=== PATIENT | male | born 1975 | race Caucasian/White ===

== ENCOUNTER 2016-05-25 15:26 | Emergency (ER) | payer OTHER ==
[2016-05-25] MEDS ORDERED: oxyCODONE 5 MG TABLET PO STA (15:39)
[2016-05-25] MEDS ORDERED: oxyCODONE 5 MG TABLET ONE (15:40)
== END 2016-05-25 16:50 | disposition home or self-care (01) ==
DX: R07.9 Chest pain, unspecified (principal); M79.605 Pain in left leg; R03.0 Elevated blood-pressure reading, without diagnosis of hypertension; I48.0 Paroxysmal atrial fibrillation; G43.909 Migraine, unspecified, not intractable, without status migrainosus; Z86.718 Personal history of other venous thrombosis and embolism; Z79.82 Long term (current) use of aspirin; Z79.899 Other long term (current) drug therapy
CPT/HCPCS: 36415; 80053; 83690; 85025; 85379; 93005; 93010; 93971; 99283; 99284; A9270

== ENCOUNTER 2016-06-24 14:19 | Outpatient (CLI) | payer OTHER | END 2016-06-24 14:20 | disposition critical access hospital (66) | DX: R07.89 Other chest pain (principal); R68.84 Jaw pain; M79.602 Pain in left arm; R06.02 Shortness of breath | CPT/HCPCS: A0425; A0427 ==

== ENCOUNTER 2016-07-02 16:13 | Outpatient (CLI) | payer OTHER | END 2016-07-02 16:14 | disposition home or self-care (01) | DX: M47.812 Spondylosis without myelopathy or radiculopathy, cervical region (principal); M50.222 Other cervical disc displacement at C5-C6 level; M47.813 Spondylosis without myelopathy or radiculopathy, cervicothoracic region ==

== ENCOUNTER 2016-11-06 14:58 | Outpatient (CLI) | payer OTHER | END 2016-11-06 14:59 | disposition critical access hospital (66) | LOC: EMS 14:58 | PROVIDERS: ATTEND Surgery | DX: R25.9 Unspecified abnormal involuntary movements (principal); R51 Headache | CPT/HCPCS: A0425; A0427 ==

== ENCOUNTER 2016-11-06 15:15 | Emergency (ER) | payer OTHER ==
[2016-11-06] MEDS ORDERED: SODIUM CHLORIDE 0.9% 1,000 ML IV ONE ×2 (15:21→15:32)
[2016-11-06] MEDS ORDERED: PROCHLORPERAZINE 10 MG/2 ML VIAL IVP STA (15:21)
[2016-11-06] MEDS ORDERED: DEXAMETHASONE 10 MG/ML VIAL IVP STA (15:21)
[2016-11-06] MEDS ORDERED: diphenhydrAMINE INJ 50 MG/ML VIAL IVP STA (15:21)
[2016-11-06] MEDS ORDERED: KETOROLAC 60 MG/2 ML VIAL IVP STA (15:21)
[2016-11-06] MEDS ORDERED: KETOROLAC 30 MG/ML VIAL ONE (15:31)
[2016-11-06] MEDS ORDERED: diphenhydrAMINE INJ 50 MG/ML VIAL ONE (15:31)
[2016-11-06] MEDS ORDERED: DEXAMETHASONE 10 MG/ML VIAL ONE (15:32)
[2016-11-06] MEDS ORDERED: PROCHLORPERAZINE 10 MG/2 ML VIAL ONE (15:32)
[2016-11-06 15:33] LABS: BASOPHILS # (AUTO) 0.1 10^3/uL (0.0-0.1); BASOPHILS % (AUTO) 1.3 %; EOSINOPHILS # (AUTO) 0.2 10^3/uL (0.0-0.7); EOSINOPHILS % (AUTO) 2.3 %; HCT - HEMATOCRIT 48.9 % (42.0-52.0); HGB - HEMOGLOBIN 16.5 g/dL (14.0-18.0); LYMPHOCYTES # (AUTO) 2.4 10^3/uL (1.5-3.5); LYMPHOCYTES % (AUTO) 33.5 %; MEAN CORPUSCULAR HEMOGLOBIN 30.6 pg (27.0-31.0); MEAN CORPUSCULAR HGB CONC 33.8 g/dL (32.0-36.0); MEAN CORPUSCULAR VOLUME 90.4 fL (80.0-94.0); MEAN PLATELET VOLUME 7.5 fL (7.4-11.4); MONOCYTES # (AUTO) 0.7 10^3/uL (0.0-1.0); MONOCYTES % (AUTO) 9.3 %; NEUTROPHILS # (AUTO) 3.9 10^3/uL (1.5-6.6); NEUTROPHILS % (AUTO) 53.6 %; NUCLEATED RED BLOOD CELLS AUTO 0.1 /100WBC; RED BLOOD COUNT 5.41 10^6/uL (4.70-6.10); RED CELL DISTRIBUTION WIDTH 12.8 % (12.0-15.0); UNCORRECTED WHITE BLOOD COUNT 7.2 x10^3/uL; WHITE BLOOD COUNT 7.2 x10^3/uL (4.8-10.8)
[2016-11-06 15:37] LABS: BILIRUBIN,URINE NEGATIVE (NEGATIVE); PH,URINE 6.5 PH (5.0-7.5)
[2016-11-06 15:38] LABS: UA CHARGE (STRIP ONLY) YES; UR CULTURE IF IND NOT INDICATED
[2016-11-06] MEDS ORDERED: HYDROmorphone 1 MG/ML SYRINGE IVP STA (15:42)
--- NOTE | 2016-11-06 15:42 | ED Physician Documentation ---
History of Present Illness - Stated complaint Stated Complaint: REACTION - Chief complaint Chief Complaint: General - History obtained from History obtained from: Patient, EMS - History of Present Illness Timing: Today - Additonal information Additional information: 40-year-old male with a history of migraines who over the past 6 months has developed periodic body shaking associated with his headaches. These body shaking episodes usually only last briefly and are self resolving. He states that today he was at work when he developed a headache and he developed some of this body shaking which is consisting of flexion of the neck and torso and lower back in a rhythmic fashion with the legs pulled up and flexing and relaxing as well. He states that he was stubborn and got in his car and drove home and his called 911. He was treated in route to the hospital with Benadryl 25 mg intravenous. He arrived to the emergency department with flexion and extension of the torso head neck and lower extremities in a rhythmic fashion during which the patient was able to answer questions and he was able to halt this for brief periods of time. He relates that he sees a headache specialist a neurologist in [place] and this neurologist has diagnosed him with atypical migraines. Review of Systems Constitutional: denies: Fever, Chills, Myalgias Eyes: denies: Decreased vision Ears: denies: Ear pain Nose: denies: Rhinorrhea / runny nose, Congestion Throat: denies: Oral lesions / sores, Sore throat Cardiac: denies: Chest pain / pressure, Palpitations Respiratory: denies: Dyspnea, Cough GI: reports: Nausea, Vomiting. denies: Abdominal Pain : denies: Dysuria, Frequency Skin: denies: Rash Musculoskeletal: reports: Neck pain. denies: Back pain, Extremity pain, Joint pain Neurologic: reports: Headache. denies: Generalized weakness, Focal weakness, Numbness, Head injury, LOC PD PAST MEDICAL HISTORY - Past Medical History Cardiovascular: Atrial fibrillation Neuro: Headache/migraine - Past Surgical History Past Surgical History: No General: Appendectomy HEENT: Tonsil/Adenoidectomy - Present Medications Home Medications: Ambulatory Orders Medication Instructions Recorded Confirmed Duloxetine HCl 1 cap PO BID 01/27/16 11/06/16 Gabapentin 3 cap PO BID 01/27/16 11/06/16 Prazosin HCl 20 mg PO DAILY 01/27/16 11/06/16 lamoTRIgine [LaMICtal] 100 mg PO BID 01/27/16 11/06/16 Methocarbamol 500 mg PO TID 05/25/16 11/06/16 Butalb/Acetaminophen/Caffeine 1 each PO PRN PRN 06/24/16 11/06/16 [Fioricet 50-300-40 mg Capsule] Aspirin 81 mg ORAL DAILY 11/06/16 11/06/16 Ergocalciferol [Vitamin D2] 50,000 units ORAL DAILY 11/06/16 11/06/16 HYDROcod/ACETAM 5/325 [[place] 5/325] 1 - 2 ea PO Q6H PRN #15 tablet 11/06/16 Metoprolol Succinate 25 mg ORAL DAILY 11/06/16 11/06/16 - Allergies Allergies/Adverse Reactions: Allergies Allergy/AdvReac Type Severity Reaction Status Date / Time anthrax vaccine Allergy Edema Verified 06/24/16 14:57 [Anthrax Vaccine] levofloxacin [From Levaquin] Allergy Unknown Verified 06/24/16 14:57 - Social History Does the pt smoke?: Yes Smoking Status: Former smoker Does the pt drink ETOH?: Yes Does the pt have substance abuse?: No - Immunizations Immunizations are current?: Yes PD ED PE NORMAL - Vitals Vital signs reviewed: Yes (tachy and hypertensive) - General General: Well developed/nourished, Other (The patient is rythmically flexing his neck and torso as well as his LE. He has been doing this for about 2 hours now and he is diaphoretic and he is grunting in pain and he notes the pain is in the neck and head. ) - HEENT HEENT: Atraumatic, PERRL, EOMI, Ears normal, Moist mucous membranes, Pharynx benign - Neck Neck: No bony TTP, Other (There is dense spasm to the cervical paraspinous muscles. ) - Cardiac Cardiac: RRR, No murmur - Respiratory Respiratory: No respiratory distress, Clear bilaterally - Abdomen Abdomen: Soft, Non tender - Back Back: No CVA TTP, No spinal TTP - Derm Derm: Normal color, Warm and dry, No rash - Extremities Extremities: No deformity, No edema - Neuro Neuro: Alert and oriented X 3, psychiatric aide instructor 2-12 intact, No motor deficit, No sensory deficit, Normal speech Results - Vitals Vitals: Vital Signs - 24 hr 11/06/16 11/06/16 11/06/16 15:20 16:14 17:31 Temperature 36.3 C L Heart Rate 104 H 81 68 Respiratory 22 16 Rate Blood Pressure 141/104 H 125/82 H 127/78 O2 Saturation 98 98 98 11/06/16 18:33 Temperature 36.9 C Heart Rate 73 Respiratory 18 Rate Blood Pressure 128/80 O2 Saturation 96 Oxygen O2 Source Room air - Labs Labs: Laboratory Tests 11/06/16 11/06/16 11/06/16 15:25 15:25 15:25 WBC 7.2 RBC 5.41 Hgb 16.5 Hct 48.9 MCV 90.4 MCH 30.6 MCHC 33.8 RDW 12.8 Plt Count 188 MPV 7.5 Neut # 3.9 Lymph # 2.4 [place] # 0.7 Eos # 0.2 Baso # 0.1 Absolute Nucleated RBC 0.00 Nucleated RBCs 0.1 Sodium 137 Potassium 3.9 Chloride 103 Carbon Dioxide 24 Anion Gap 10.0 BUN 9 Creatinine 0.9 Estimated GFR (MDRD) 94 Glucose 106 H Calcium 9.3 Total Bilirubin 0.4 AST 24 ALT 30 Alkaline Phosphatase 65 Total Creatine Kinase 82 CK-MB (CK-2) 1.4 Troponin I < 0.04 Total Protein 7.4 Albumin 4.7 Globulin 2.7 Albumin/Globulin Ratio 1.7 Lipase 35 Urine Color Urine Clarity Urine pH Ur Specific [place] Urine Protein Urine Glucose (UA) Urine Ketones Urine Occult Blood Urine Nitrite Urine Bilirubin Urine Urobilinogen Ur Leukocyte Esterase Ur Microscopic Review Urine Culture Comments Urine Opiates Screen Ur Oxycodone Screen Urine Methadone Screen Ur Propoxyphene Screen Ur Barbiturates Screen Ur Tricyclics Screen Ur Phencyclidine Scrn Ur Amphetamine Screen U Methamphetamines Scrn U Benzodiazepines Scrn Urine Cocaine Screen U Cannabinoids Screen 11/06/16 15:25 WBC RBC Hgb Hct MCV MCH MCHC RDW Plt Count MPV Neut # Lymph # [place] # Eos # Baso # Absolute Nucleated RBC Nucleated RBCs Sodium Potassium Chloride Carbon Dioxide Anion Gap BUN Creatinine Estimated GFR (MDRD) Glucose Calcium Total Bilirubin AST ALT Alkaline Phosphatase Total Creatine Kinase CK-MB (CK-2) Troponin I Total Protein Albumin Globulin Albumin/Globulin Ratio Lipase Urine Color YELLOW Urine Clarity CLEAR Urine pH 6.5 Ur Specific [place] <=1.005 Urine Protein NEGATIVE Urine Glucose (UA) NEGATIVE Urine Ketones NEGATIVE Urine Occult Blood NEGATIVE Urine Nitrite NEGATIVE Urine Bilirubin NEGATIVE Urine Urobilinogen 0.2 (NORMAL) Ur Leukocyte Esterase NEGATIVE Ur Microscopic Review NOT INDICATED Urine Culture Comments NOT INDICATED Urine Opiates Screen NEGATIVE Ur Oxycodone Screen NEGATIVE Urine Methadone Screen NEGATIVE Ur Propoxyphene Screen NEGATIVE Ur Barbiturates Screen POSITIVE H Ur Tricyclics Screen NEGATIVE Ur Phencyclidine Scrn NEGATIVE Ur Amphetamine Screen NEGATIVE U Methamphetamines Scrn NEGATIVE U Benzodiazepines Scrn NEGATIVE Urine Cocaine Screen NEGATIVE U Cannabinoids Screen NEGATIVE PD MEDICAL DECISION MAKING - ED course Complexity details: reviewed old records, reviewed results, re-evaluated patient , considered differential, d/w patient ED course: 40-year-old male with a headache and atypical movement is treated for migraine on arrival to the emergency department with Compazine Benadryl Toradol Decadron and saline he has some improvement with this but requires a dose of Dilaudid for control of the headache pain and following the administration of this he has cessation of his body jerking. He does not have elevation of his CK and his headache is resolved. The patient had a dramatic presentation and his behavior appeared to me to be a hysterical pain behavior with hyperventilation and rapid rocking. He does have a history of PTSD and he is being treated for this. At the conclusion of treatment the patient is markedly improved he is animated and able to provide history with his family and boss present. He has an appointment next with pain management. I wonder if this patient is experiencing PTSD with his headaches. Departure - Departure Disposition: 01 Home, Self Care Clinical Impression: Migraine Qualifiers: Migraine type: unspecified Status migrainosus presence: with status migrainosus Intractability: not intractable Qualified Code(s): G43.901 - Migraine, unspecified, not intractable, with status migrainosus Condition: Stable Instructions: ED Headache Migraine Follow-Up: [facility] [Provider Group] Prescriptions: HYDROcod/ACETAM 5/325 [[place] 5/325] 1 - 2 ea PO Q6H PRN #15 tablet PRN Reason: Pain Discharge Date/Time: 11/06/16 18:54
[2016-11-06 15:46] LABS: ALBUMIN/GLOBULIN RATIO 1.7 (1.0-2.2); BILIRUBIN,TOTAL 0.4 mg/dL (0.2-1.0); CALCIUM 9.3 mg/dL (8.5-10.3); CREATININE 0.9 mg/dL (0.6-1.2); POTASSIUM 3.9 mmol/L (3.5-5.0); TOTAL PROTEIN 7.4 g/dL (6.7-8.2)
[2016-11-06] MEDS ORDERED: HYDROmorphone 1 MG/ML SYRINGE ONE (15:48)
[2016-11-06 15:53] LABS: CREATINE KINASE MB 1.4 ng/mL (0.6-6.3)
[2016-11-06 15:54] LABS: TROPONIN I < 0.04 ng/mL (<0.49)
[2016-11-06 18:34] VITALS: BP 128/80
== END 2016-11-06 18:54 | disposition home or self-care (01) ==
LOC: EDUNIT# → ED 15:15
DX: G43.909 Migraine, unspecified, not intractable, without status migrainosus (principal)
CPT/HCPCS: 36415; 80053; 80306; 81003; 82550; 82553; 83690; 84484; 85025; 96374; 96375; 99284; J1170; 81001; 87086

== ENCOUNTER 2018-08-14 07:02 | Outpatient (CLI) | payer OTHER ==
--- NOTE | 2018-08-16 09:40 | MRI Report ---
Reason: LT KNEE PAIN Procedure Date: 08/14/2018 Accession Number: [id number] / [id number] Procedure: MRI - Knee LT W/O CPT Code: FULL RESULT: EXAM: LEFT KNEE MRI WITHOUT CONTRAST EXAM DATE: 08/14/2018 07:50 AM. CLINICAL HISTORY: Left knee pain. COMPARISON: None. TECHNIQUE: Multiplanar, multisequence T1-weighted and fluid-sensitive sequences of the knee without contrast. Other: None. FINDINGS: Bones: Mild deformity of the medial tibial plateau with some trabecular sclerosis, may be an old healed fracture. No marrow edema at this time. Articular Cartilage: Unremarkable. Medial Meniscus: 0.8 cm nondisplaced radial tear posterior horn. Lateral Meniscus: The lateral meniscus is intact. Cruciate Ligaments: The anterior and posterior cruciate ligaments are intact. Collateral Ligaments: The medial collateral and lateral collateral ligamentous structures are intact. Tendons: The quadriceps, patellar, semimembranosus, and popliteus tendons are unremarkable. Musculature: No edema or fatty atrophy. Other: Small effusion. No popliteal cyst. No loose bodies. The medial and lateral retinacula are intact. Mild diffuse subcutaneous edema. IMPRESSION: 1. Small radial tear posterior horn medial meniscus, nondisplaced. 2. There is mild deformity and likely some mild chronic depression of the posterior medial tibial plateau but no marrow edema. May be old injury. 3. Small joint effusion. RADIA
== END 2018-08-14 07:03 | disposition home or self-care (01) ==
LOC: DI 07:02
PROVIDERS: ATTEND Nurse Practitioner Adult Health
DX: S83.242A Other tear of medial meniscus, current injury, left knee, initial encounter (principal); M25.462 Effusion, left knee

== ENCOUNTER 2020-08-10 19:05 | Emergency (ER) | payer OTHER ==
--- OUTSIDE RECORDS SUMMARY | 2020-08-10 19:28 | EXTERNAL MEDICAL SUMMARY RPT | Continuity of Care Document ---
:1975 Demographics Phone Unavailable Preferred Language Unknown Marital Status Unknown Restorationist Affiliation Unknown Race Unknown Ethnic Group Unknown Author Organization [facility] Address [address] [place] [address] Phone Social History date description facility [phone]
[2020-08-10] MEDS ORDERED: HYDROcod/ACETAM 5/325 MG TABLET PO STA (19:57)
--- NOTE | 2020-08-10 19:58 | ED Physician Documentation ---
PD HPI LOWER EXT INJURY - Stated complaint Stated Complaint: LT LEG PX - Chief complaint Chief Complaint: Ext Problem - History obtained from History obtained from: Patient - Additional information Additional information: 44-year-old gentleman with history of DVT and psychiatric issues. He had a DVT about 2 years ago and was anticoagulated but is no longer. He has had 6 hours of left calf pain consistent with prior DVT. He denies chest pain or trouble breathing. Review of Systems Constitutional: reports: Reviewed and negative Eyes: reports: Reviewed and negative Ears: reports: Reviewed and negative Nose: reports: Reviewed and negative Throat: reports: Reviewed and negative Cardiac: reports: Reviewed and negative Respiratory: reports: Reviewed and negative PD PAST MEDICAL HISTORY - Past Medical History Past Medical History: Yes Cardiovascular: Atrial fibrillation Neuro: Migraines Psych: Post traumatic stress disorder Other Past Medical History: TBI - Past Surgical History Past Surgical History: No General: Appendectomy HEENT: Tonsil/Adenoidectomy - Present Medications Home Medications: Ambulatory Orders Medication Instructions Recorded Confirmed Duloxetine HCl 1 cap PO BID 01/27/16 08/10/20 Gabapentin 3 cap PO BID 01/27/16 08/10/20 Prazosin HCl 20 mg PO DAILY 01/27/16 08/10/20 lamoTRIgine [LaMICtal] 100 mg PO BID 01/27/16 08/10/20 methocarbamoL [Methocarbamol] 500 mg PO TID 05/25/16 08/10/20 Butalb/Acetaminophen/Caffeine 1 each PO PRN PRN 06/24/16 08/10/20 [Fioricet 50-300-40 mg Capsule] Aspirin 81 mg ORAL DAILY 11/06/16 08/10/20 Ergocalciferol [Vitamin D2] 50,000 units ORAL DAILY 11/06/16 08/10/20 HYDROcod/ACETAM 5/325 [[place] 5/325] 1 - 2 ea PO Q6H PRN #15 tablet 11/06/16 08/10/20 Metoprolol Succinate 25 mg ORAL DAILY 11/06/16 08/10/20 - Allergies Allergies/Adverse Reactions: Allergies Allergy/AdvReac Type Severity Reaction Status Date / Time anthrax vaccine Allergy Edema Verified 08/10/20 19:14 [Anthrax Vaccine] levofloxacin [From Levaquin] Allergy Unknown Verified 08/10/20 19:14 - Social History Does the pt smoke?: Yes Smoking Status: Current every day smoker Does the pt drink ETOH?: Yes Does the pt have substance abuse?: No - Immunizations Immunizations are current?: Yes PD ED PE NORMAL - Vitals Vital signs reviewed: Yes - General General: Alert and oriented X 3, No acute distress - Extremities Extremities: Other (Tender left calf. No significant swelling or discoloration. Normal cap refill.) - Neuro Neuro: Alert and oriented X 3, Normal speech Results - Vitals Vitals: Vital Signs - 24 hr 08/10/20 08/10/20 19:14 21:48 Temperature 36.4 C L 36.8 C Heart Rate 85 65 Respiratory 16 14 Rate Blood Pressure 140/89 H 122/65 O2 Saturation 96 99 Oxygen O2 Source Room air PD MEDICAL DECISION MAKING - ED course ED course: 44-year-old gentleman with history of DVT presents with very acute left leg pain but normal exam. DVT ultrasound per the bin cleaner is negative for DVT. Departure - Departure Disposition: 01 Home, Self Care Clinical Impression: Left leg pain Condition: Good Record reviewed to determine appropriate education?: Yes Instructions: ED Strain Muscle Ext Comments: No evidence of DVT on today's ultrasound. If pain is persistent, talk with your doctor about a repeat ultrasound in a week. Return for new or worsening symptoms. Discharge Date/Time: 08/10/20 21:51
[2020-08-10 21:49] VITALS: BP 122/65
--- NOTE | 2020-08-11 10:33 | Ultrasound Report ---
PROCEDURE: Duplex Ext Veins Left INDICATIONS: leg pain TECHNIQUE: Real-time imaging, as well as color and pulse Doppler interrogation, were performed of the lower extr emity deep veins from the inguinal ligament to the popliteal fossa. COMPARISON: 05/25/2016, 01/27/2016 FINDINGS: The deep veins are normally compressible, and free of intraluminal thrombus. Color and pu lse Doppler demonstrate normal phasic intraluminal flow. There is normal augmentation response to di stal compression maneuver. IMPRESSION: No findings of deep venous thrombosis are seen. Note: No significant discrepancy from the preliminary report. Reviewed by: Bro Samayoa MD on 08/11/2020 9:31 AM SAMANTHA Approved by: Bro Samayoa MD on 08/11/2020 9:31 AM SAMANTHA Station ID: [id number]
== END 2020-08-10 21:51 | disposition home or self-care (01) ==
LOC: ED 19:05
DX: M79.662 Pain in left lower leg (principal); F17.200 Nicotine dependence, unspecified, uncomplicated
CPT/HCPCS: 93971; 99283; 99284; A9270